=== PATIENT | female | born 1950 | race Asian ===

== ENCOUNTER 2017-01-05 15:57 | Emergency (ER) | payer OTHER ==
[~2017-01-05] VITALS: Ht 160 cm; Wt 64.0 kg
[2017-01-05 19:41] VITALS: BP 111/60
== END 2017-01-05 19:41 | disposition home or self-care (01) ==
LOC: ED 15:57
DX: M54.5 Low back pain (principal); M53.3 Sacrococcygeal disorders, not elsewhere classified